=== PATIENT | female | born 1945 | race Caucasian/White ===

== ENCOUNTER → 2018-02-25 | Outpatient (REF) | payer MEDICARE, OTHER ==
[2018-02-25 17:47] LABS: FOLATE 13.1 NG/ML; VITAMIN B12 LEVEL 309 PG/ML
== END ==
LOC: M LAB REF 16:38
DX: R41.3 Other amnesia (principal)
CPT/HCPCS: 82746

== ENCOUNTER 2019-07-10 12:32 | Day surgery (SDC) | payer MEDICARE, OTHER ==
[~2019-07-10] VITALS: Ht 167.6 cm; Wt 69.1 kg
[~2019-07-10 12:32] MED LIST: BUPR150T5 PO; FOSI10TA4 PO; GABA600T4 PO; NS 1,000 ML IV ONE; ROPI0.253 PO; SIMV40TA2 PO
[2019-07-10] MEDS ORDERED: PROPOFOL 200 MG/20 ML VIAL As Ordered ONE (13:55)
[2019-07-10] MEDS ORDERED: LIDOCAINE 2% INJ 100 MG/5 ML SDV (FOR ANES.) As Ordered ONE (13:55)
[2019-07-10] MEDS ORDERED: fentaNYL 100 MCG/2 ML INJECTION (J3010) As Ordered ONE (13:56)
--- NOTE | 2019-07-10 15:20 | ROOR ---
Patient Name: Flora Riley Procedure Date: 07/10/2019 2:37 PM Date of : 1945 Age: 74 Room: [facility] Gender: Female Note Status: Finalized Procedure: Upper GI endoscopy Indications: Follow-up of esophageal reflux Providers: Fransisco Vega MD Referring MD: LYDIA MARX JR, MD Requesting Provider: Medicines: Monitored Anesthesia Care Complications: No immediate complications. Procedure: Pre-Anesthesia Assessment: - Prior to the procedure, a History and Physical was performed, and patient medications and allergies were reviewed. The patient is competent. The risks and benefits of the procedure and the sedation options and risks were discussed with the patient. All questions were answered and informed consent was obtained. Patient identification and proposed procedure were verified by the physician, the nurse and the anesthesiologist in the procedure room. Mental Status Examination: alert and oriented. CV Examination: regular rate and rhythm. Prophylactic Antibiotics: The patient does not require prophylactic antibiotics. Prior Anticoagulants: The patient has taken no previous anticoagulant or antiplatelet agents. ASA Grade Assessment: II - A patient with mild systemic disease. After reviewing the risks and benefits, the patient was deemed in satisfactory condition to undergo the procedure. The anesthesia plan was to use monitored anesthesia care (MAC). Immediately prior to administration of medications, the patient was re-assessed for adequacy to receive sedatives. The heart rate, respiratory rate, oxygen saturations, blood pressure, adequacy of pulmonary ventilation, and response to care were monitored throughout the procedure. The physical status of the patient was re-assessed after the procedure. The Endoscope was introduced through the mouth, and advanced to the second part of duodenum. The upper GI endoscopy was accomplished without difficulty. The patient tolerated the procedure well. Findings: The examined esophagus was normal. The Z-line was regular. The entire examined stomach was normal. The first portion of the duodenum and second portion of the duodenum were normal. Impression: - Normal esophagus. - Z-line regular. - Normal stomach. - Normal first portion of the duodenum and second portion of the duodenum. - No specimens collected. Recommendation: - Discharge patient to home. - Resume previous diet. - Continue present medications. Fransisco Vega MD Fransisco Vega MD 07/10/2019 3:19:55 PM Electronically signed by Frasnisco Vega MD Number of Addenda: 0 Note Initiated On: 07/10/2019 2:37 PM Estimated Blood Loss: Estimated blood loss: none.
--- NOTE | 2019-07-10 15:31 | ROOR ---
Patient Name: Flora Riley Procedure Date: 07/10/2019 2:38 PM Date of : 1945 Age: 74 Room: [facility] Gender: Female Note Status: Finalized Procedure: Colonoscopy Indications: High risk colon cancer surveillance: Personal history of non-advanced adenoma, Last colonoscopy: July 2013 Providers: Fransisco Vega MD Referring MD: LYDIA MARX JR, MD Requesting Provider: Medicines: Monitored Anesthesia Care Complications: No immediate complications. Procedure: Pre-Anesthesia Assessment: - Prior to the procedure, a History and Physical was performed, and patient medications and allergies were reviewed. The patient is competent. The risks and benefits of the procedure and the sedation options and risks were discussed with the patient. All questions were answered and informed consent was obtained. Patient identification and proposed procedure were verified by the physician, the nurse and the anesthesiologist in the procedure room. Mental Status Examination: alert and oriented. CV Examination: regular rate and rhythm. Prophylactic Antibiotics: The patient does not require prophylactic antibiotics. Prior Anticoagulants: The patient has taken no previous anticoagulant or antiplatelet agents. ASA Grade Assessment: II - A patient with mild systemic disease. After reviewing the risks and benefits, the patient was deemed in satisfactory condition to undergo the procedure. The anesthesia plan was to use monitored anesthesia care (MAC). Immediately prior to administration of medications, the patient was re-assessed for adequacy to receive sedatives. The heart rate, respiratory rate, oxygen saturations, blood pressure, adequacy of pulmonary ventilation, and response to care were monitored throughout the procedure. The physical status of the patient was re-assessed after the procedure. The was introduced through the anus and advanced to the cecum, identified by appendiceal orifice and ileocecal valve. The colonoscopy was performed without difficulty. The patient tolerated the procedure well. The quality of the bowel preparation was excellent. Findings: The perianal and digital rectal examinations were normal. Multiple medium-mouthed diverticula were found in the sigmoid colon and descending colon. Impression: - Diverticulosis in the sigmoid colon and in the descending colon. - No specimens collected. Recommendation: - Discharge patient to home. - Resume previous diet. - Continue present medications. - Repeat colonoscopy in 5 years for surveillance. Fransisco Vega MD Fransisco Vega MD 07/10/2019 3:30:27 PM Electronically signed by Fransisco Vega MD Number of Addenda: 0 Note Initiated On: 07/10/2019 2:38 PM Estimated Blood Loss: Estimated blood loss: none.
[2019-07-10 15:40] VITALS: BP 196/88
[2019-07-11] MEDS ORDERED: fentaNYL 100 MCG/2 ML INJECTION (J3010) As Ordered ONE (12:03)
== END 2019-07-10 15:55 | disposition home or self-care (01) ==
LOC: M OPP 12:32
PROVIDERS: ATTEND Surgery
DX: Z12.11 Encounter for screening for malignant neoplasm of colon (principal); Z86.010 Personal history of colon polyps; K57.30 Diverticulosis of large intestine without perforation or abscess without bleeding; K21.9 Gastro-esophageal reflux disease without esophagitis; Z79.899 Other long term (current) drug therapy; Z88.5 Allergy status to narcotic agent; Z87.891 Personal history of nicotine dependence
CPT/HCPCS: 43235; G0105; J3010

== ENCOUNTER → 2019-08-22 | Outpatient (CLI) | payer MEDICARE, OTHER ==
[~2019-08-22] MED LIST changes: -NS 1,000 ML IV ONE
--- NOTE | 2019-08-22 15:10 | REP ---
MRI lumbar spine: 08/22/2019. Indication: Low back pain. Comparison: None. Technique: Multiplanar short and long TR sequences of the lumbar spine were performed. Findings: There is minimal retrolisthesis of L4-L5. There is a grade 1/grade 2 anterolisthesis of L5 on S1. Disc desiccation and disc space narrowing are present throughout. Multilevel endplate degenerative signal changes are present most pronounced at L4/L5 without worrisome marrow signal detected. The visualized cord is normal. 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 L1/L2: There is no significant disc herniation or spinal canal / neural foraminal narrowing. L2/L3: Diffuse disc bulge and bilateral facet arthropathy are present with mild recess and neural foraminal narrowing. L3/L4: Diffuse disc bulge and significant bilateral facet arthropathy are present with moderate narrowing of the lateral recesses and neural foramina. L4/L5: Diffuse disc and spur complex and significant bilateral facet arthropathy are present with severe right and moderate to severe left recess narrowing. There is moderate to severe bilateral neural foraminal narrowing with contact of the exiting L4 nerve roots particularly on the right. L5/S1: Diffuse disc uncovering/bulge with anterior osteophytic spurring as well as bilateral facet arthropathy are present. There is mild narrowing of the spinal canal. Moderate to severe bilateral neural foraminal narrowing is present. 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 Please correlate with radicular level. Electronically Signed by Benny Slaughter DO 08/22/2019 03:01 P
== END ==
LOC: M RAD 09:28
PROVIDERS: ATTEND Physician Assistant
DX: M51.36 Other intervertebral disc degeneration, lumbar region (principal)

== ENCOUNTER → 2021-03-23 | Outpatient (CLI) | payer MEDICARE, OTHER ==
[~2021-03-23] MED LIST changes: -SIMV40TA2 PO; +SIMV40TA20 PO
--- NOTE | 2021-03-23 09:23 | REP ---
INDICATION: HTN URGENCY. COMPARISON: None. FINDINGS: Multiple ultrasonographic images of the right kidney show the right kidney to measure 9.6 x 4.8 x 4.3 cm. The renal cortical echotexture is unremarkable. There are no masses. There is good corticomedullary differentiation. There is no hydronephrosis. There are no perinephric fluid collections. Multiple ultrasonographic images of the left kidney show the left kidney to measure 12.3 x 5.6 x 5.3 cm. The renal cortical echotexture is unremarkable. There are no masses. There is good corticomedullary differentiation. There is no hydronephrosis. There are no perinephric fluid collections. The peak systolic velocity in the aorta at the level of the renal arteries is 74.1 cm/SEC. On the right: The peak renal artery systolic velocity is 97.3 cm/SEC. The renal aortic ratio is 1.3. The resistive index ranges between 0.48 and 0.67. The acceleration time ranges between 0.002 and 0.019. On the left: The peak renal artery systolic velocity is 55.7 cm/SEC The renal aortic ratio is 0.8. The resistive index ranges between 0.49 and 0.61. The acceleration time ranges between 0.005 and 0.025 A mild tardus/parvus waveform was identified IMPRESSION: Unremarkable renal ultrasonography. There is no ultrasonographic evidence of renal artery stenosis. <Electronically signed by Morris Brown > 03/23/21 0919
== END ==
LOC: M RAD 07:52
PROVIDERS: ATTEND Internal Medicine
DX: I16.0 Hypertensive urgency (principal)

== ENCOUNTER → 2021-11-01 | Outpatient (REF) | payer MEDICARE, OTHER ==
[~2021-11-01] MED LIST changes: -FOSI10TA4 PO; +FOSI10TA44 PO
== END ==
LOC: M LAB REF 12:10
PROVIDERS: ATTEND Internal Medicine
DX: M54.50 Low back pain, unspecified (principal); N39.0 Urinary tract infection, site not specified

== ENCOUNTER → 2022-05-09 | Outpatient (REF) | payer MEDICARE, OTHER ==
[~2022-05-09] MED LIST changes: +BUPR-71 PO; -BUPR150T5 PO
== END ==
LOC: M LAB REF 11:22
PROVIDERS: ATTEND Internal Medicine
DX: E83.52 Hypercalcemia (principal)

== ENCOUNTER → 2023-06-21 | Outpatient (REF) | payer MEDICARE, OTHER ==
[~2023-06-21] MED LIST changes: -ROPI0.253 PO; +ROPI5TAB19 PO
== END ==
LOC: M LAB REF 16:25
PROVIDERS: ATTEND Internal Medicine
DX: E83.52 Hypercalcemia (principal)

== ENCOUNTER → 2025-08-07 | Outpatient (CLI) | payer MEDICARE, OTHER ==
[~2025-08-07] MED LIST changes: +GABA-1490 PO; -GABA600T4 PO
== END ==
LOC: M RAD 09:29
PROVIDERS: ATTEND Internal Medicine
DX: I65.23 Occlusion and stenosis of bilateral carotid arteries (principal)